=== PATIENT | male | born 1945 | race Caucasian/White ===

== ENCOUNTER 2023-10-01 06:26 | Day surgery (SDC) | payer OTHER ==
[2023-09-27 16:27] LABS: Absolute Basophils 0.1 K/uL (0-0.5); Absolute Eosinophils 0.3 K/uL (0-0.5); Absolute Lymphocytes (CBC) 1.9 K/uL (0.7-4.9); Absolute Monocytes 0.8 K/uL (0.1-1.3); Absolute Neutrophil 3.1 K/uL (1.8-8.0); Basophils % 0.9 % (0-1.3); Eosinophils % 4.9 % (0-4.4); Hematocrit 38.1 % (39.6-49.0); Hemoglobin 13.1 g/dL (13.6-17.9); Lymphocytes % 30.4 % (15.3-44.8); MCH 34.7 pg (27.0-35.0); MCHC 34.3 g/dL (32.0-36.0); MCV 101.2 fL (80-100); MPV 7.9 fL (7.6-11.3); Neutrophils % 50.8 % (41.7-73.7); Nucleated Red Blood Cells % 0.2 % (0-0); Platelets 207 thou/uL (152-406); RBC Red Blood Cell Count 3.76 M/uL (4.33-5.43); Red Cell Distribution Width 13.1 % (12.1-15.2)
[2023-09-27 16:42] LABS: Anion Gap 5.6 mEq/L (5.0-15.0); Potassium 3.6 mEq/L (3.5-5.1)
--- NOTE | 2023-09-28 00:47 | RAD REPORT ---
EXAM DESCRIPTION: RAD - Chest Pa And Lat (2 Views) - 09/27/2023 3:44 pm CLINICAL HISTORY: pre op. Hypertension COMPARISON: Chest Pa And Lat (2 Views) dated 11/13/2022; CHEST PA AND LAT 2 VIEW dated 12/20/2013; CHES T PA AND LAT 2 VIEW dated 03/19/2009 TECHNIQUE: PA and lateral views of the chest were obtained. FINDINGS: The lungs are clear apart from stable streaky right mid to lower lung opacities, may refle ct scarring. Elevation of the right hemidiaphragm again seen. Heart size is normal and central vascul ature is within normal limits. No pleural effusion or pneumothorax seen. No acute bony finding noted. IMPRESSION: No acute cardiopulmonary process. Stable findings as above.
--- NOTE | 2023-09-28 14:16 | EKG ---
Test Date: 2023-09-27 Test Time: 15:26:27 Public Relations Intern: PREO MEASUREMENT RESULTS: Intervals: Rate: 68 NV: 166 QRSD: 90 QT: 432 QTc: 459 Hardin: P: 54 NV: 166 QRS: -19 T: 31 INTERPRETIVE STATEMENTS: Normal sinus rhythm Normal ECG Compared to ECG 03/19/2009 14:57:20 No significant changes Electronically Signed On 09-28-23 14:12:36 CDT by Marin Hein
[2023-10-01] MEDS: Ringers Lactate 1,000 ML IV ONE (06:53)
[2023-10-01] MEDS ORDERED: propofoL 200 MG/20 ML VIAL IV ONE (07:10)
[2023-10-01] MEDS ORDERED: ONDANSETRON 4 MG/2 ML VIAL ONE (07:10)
[2023-10-01] MEDS ORDERED: LIDOCAINE 2% MPF 5 ML VIAL ONE (07:10)
[2023-10-01] MEDS ORDERED: FENTANYL CITR 100 MCG/2 ML ONE (07:13)
[2023-10-01] MEDS: CEFAZOLIN SODIUM 2 GM/VIAL ONE (07:37)
[2023-10-01] MEDS: BUPIVACAINE 0.5% PF 10 ML VIAL ONE ×2 (08:00→08:05)
[2023-10-01] MEDS ORDERED: EPHEDRINE SULF 50 MG/ML VIAL ONE (08:01)
--- NOTE | 2023-10-01 08:47 | P.OP ---
Date of Service: 10/01/23 Preop diagnosis: Right neck and scalp mass, rule out skin cancer Postop diagnosis: Same Procedure performed: Wide excision right neck mass 4 x 2 cm with layered closure and right scalp mass 6 x 3 cm with layered closure. Frozen section. Surgeon: Shahbaz Ritchie MD Paid Internship: Fannie AWAD Estimated blood loss: Minimal Specimen: Right neck mass and right scalp mass Findings: Skin cancer Anesthesia: General Complications: None Drains: None Fluids and blood products: Nonapplicable Disposition: Recovery room Operative note: Patient brought to the OR placed in supine position. General anesthesia begun. Patient prepped and draped in the usual sterile fashion. Marcaine 0.5% infiltrated locally for postop pain control. Then 15 blade used to make a 4 x 2 incision on the right superior neck. This incision surrounded approximately a 1 cm area of induration with central necrosis. Complete excision of the lesion was accomplished. The specimen was labeled appropriately and sent to pathology for frozen section which revealed basal cell carcinoma with margins free. Wound irrigated and bleeding controlled cautery. 3-0 chromic used to reapproximate subcutaneous tissue and 5-0 Prolene used to close skin. Sterile dressing applied. Then a 6 x 3 cm incision was made around a 2.5 cm raised ulcerated mass superior to the right ear. The borders were normal in appearance. Entire mass along with the skin was excised and sent to pathology after being appropriately labeled. Wound irrigated and bleeding controlled cautery. Flaps created. 2-0 chromic used to approximate subcutaneous tissue. 4-0 nylon used to close skin. Sterile dressing applied. Patient awakened and taken to recovery room in good general condition. The frozen section is pending on the second specimen. I will dictate an addendum should anything change. CC: Dr. John's office
[2023-10-01 12:22] VITALS: BP 128/73; TEMP 97; O2SAT 92
== END 2023-10-01 10:48 | disposition home or self-care (01) ==
LOC: OR 06:26
PROVIDERS: ATTEND Surgery
PROC: 0HB0XZZ Excision of Scalp Skin, External Approach (ICD-10-PCS; 2023-10-01)
PROC: 0HB4XZZ Excision of Neck Skin, External Approach (ICD-10-PCS; principal; 2023-10-01 07:30)
DX: C44.41 Basal cell carcinoma of skin of scalp and neck (principal)
CPT/HCPCS: 93005; 85025; 80048; 36415; 88331; 88332; 88305; 71046; 11624; 11626; J2704; J2001; J3010; J2405; J7120

== ENCOUNTER 2024-06-23 06:24 | Day surgery (SDC) | payer OTHER ==
[2024-06-21 08:19] LABS: Absolute Basophils 0.1 K/uL (0-0.5); Absolute Eosinophils 0.2 K/uL (0-0.5); Absolute Monocytes 0.7 K/uL (0.1-1.3); Absolute Neutrophil 2.1 K/uL (1.8-8.0); Basophils % 1.1 % (0-1.3); Eosinophils % 4.5 % (0-4.4); Lymphocytes % 38.6 % (15.3-44.8); MCH 33.9 pg (27.0-35.0); MCHC 33.3 g/dL (32.0-36.0); MCV 101.9 fL (80-100); MPV 6.6 fL (7.6-11.3); Monocytes % 13.7 % (3.3-12.3); Neutrophils % 42.1 % (41.7-73.7); Nucleated Red Blood Cells % 0.3 % (0-0); Platelets 240 thou/uL (152-406); RBC Red Blood Cell Count 4.13 M/uL (4.33-5.43)
--- NOTE | 2024-06-21 08:20 | RAD REPORT ---
EXAMINATION: TWO VIEW CHEST XR CLINICAL INDICATION: Pre-op pending hernia repair TECHNIQUE: 2 views of the chest was performed. COMPARISON: 09/27/2023 FINDINGS: The lungs are hyperexpanded suggesting COPD. Chronic thickening costophrenic sulci. The heart is uppe r limit of normal in size. No displaced fractures evident. IMPRESSION: COPD is suspected without acute finding identified.
[2024-06-21 08:34] LABS: Anion Gap 7.2 mEq/L (5.0-15.0); Potassium 4.2 mEq/L (3.5-5.1)
[2024-06-23] MEDS: Ringers Lactate 1,000 ML IV ONE (06:50)
[2024-06-23] MEDS ORDERED: propofoL 200 MG/20 ML VIAL IV ONE (06:51)
[2024-06-23] MEDS ORDERED: ROCURONIUM 50 MG/5 ML VIAL IV ONE (06:51)
[2024-06-23] MEDS ORDERED: GLYCOPYRROLATE 0.2 MG/ML SYR ONE (06:51)
[2024-06-23] MEDS ORDERED: ONDANSETRON 4 MG/2 ML VIAL ONE (06:51)
[2024-06-23] MEDS ORDERED: NEOSTIGMINE 1 MG/ML -10 ML VIAL ONE (06:51)
[2024-06-23] MEDS ORDERED: LIDOCAINE 2% MPF 5 ML VIAL ONE (06:51)
[2024-06-23] MEDS ORDERED: FENTANYL CITR 100 MCG/2 ML ONE (06:52)
[2024-06-23] MEDS ORDERED: MIDAZOLAM HCL 2 MG/2 ML INJ ONE (06:52)
[2024-06-23] MEDS: CEFAZOLIN SODIUM 2 GM/VIAL ONE (07:30)
[2024-06-23] MEDS ORDERED: SUGAMMADEX SODIUM 200 MG/2 ML VIAL IV ONE (07:42)
[2024-06-23] MEDS ORDERED: EPHEDRINE SULF 50 MG/ML VIAL ONE (07:53)
--- NOTE | 2024-06-23 08:36 | P.OP ---
Date of Service: 06/23/24 Preop diagnosis: Umbilical hernia Postop diagnosis: Same Procedure performed: Laparoscopic assisted repair of umbilical hernia Surgeon: Shahbaz Ritchie MD Dielectric Tester: None Estimated blood loss: Minimal Specimen: Hernia sac Findings: As above Anesthesia: General Complications: None Drains: None Fluids and blood products: Nonapplicable Disposition: Recovery room Operative note: Patient brought to the OR and placed in supine position. General anesthesia began. Patient prepped and draped in usual sterile fashion. Marcaine 0.5% infiltrated locally. 15 blade used to make a 1 cm left upper quadrant incision. Subcutaneous tissue divided. Bleeding controlled cautery. Fascia identified and divided. #1 Vicryl stay suture placed. Peritoneal cavity entered with sharp and blunt dissection. 12 mm trocar placed into the peritoneal cavity under direct vision. Pneumoperitoneum established. A 5 mm trocar placed in the left lower quadrant under direct vision. Laparoscopy revealed a infraumbilical hernia with preperitoneal fat. The defect was approximately 2 cm in diameter. A 4 cm infraumbilical transverse incision was made. Subcutaneous tissue divided. Hernia sac and contents identified. Both excised and sent to pathology as specimen. Good fascial edges obtained. A large Ventralex hernia mesh placed. #1 PDS used to close the fascial defect as well as attach the mesh to the hernia. Laparoscopy reestablished. The mesh had complete coverage of the hernia defect with 3 cm borders on all sides. Sorber tack used to secure the mesh to the peritoneal surface. There was no evidence of bleeding or bowel injury appreciated. All trocars removed under direct vision. Stay sutures tied to each other to reapproximate the fascial defect. Subcutaneous wounds irrigated and bleeding controlled cautery. 3-0 chromic used to approximate subcutaneous tissue and close skin. Sterile dressing applied. Patient awakened and taken to recovery room in good general condition. CC: Dr. John's office
[2024-06-23] MEDS: HYDROMORPHONE HCL 1 MG/ML INJ ONE (08:56)
[2024-06-23] MEDS: HYDROCODONE/APAP 7.5/325 MG TAB ONE (09:35)
[2024-06-23] MEDS ORDERED: Mastisol Adhesive Liq ONE (09:59)
[2024-06-23 10:19] VITALS: TEMP 97
[2024-06-23 12:28] VITALS: BP 103/68; O2SAT 94
== END 2024-06-23 11:11 | disposition home or self-care (01) ==
LOC: OR 06:24
PROVIDERS: ATTEND Surgery
PROC: 0WUF4JZ Supplement Abdominal Wall with Synthetic Substitute, Percutaneous Endoscopic Approach (ICD-10-PCS; principal; 2024-06-23 07:30)
DX: K42.9 Umbilical hernia without obstruction or gangrene (principal)
CPT/HCPCS: 85025; 80048; 36415; 88302; 71046; 49591; J2704; J2003; J2250; J3010; J1171; J2405; J7120; A4314; J2710

== ENCOUNTER 2025-02-05 07:13 | Day surgery (SDC) | payer OTHER ==
[2025-02-02 09:52] LABS: Absolute Lymphocytes (CBC) 1.8 K/uL (0.7-4.9); Hematocrit 40.2 % (39.6-49.0); Hemoglobin 13.4 g/dL (13.6-17.9); MCH 34.0 pg (27.0-35.0); MCHC 33.3 g/dL (32.0-36.0); MCV 101.9 fL (80-100); MPV 7.1 fL (7.6-11.3); Nucleated RBC Absolute Count 0.0 (0-0); Nucleated Red Blood Cells % 0.1 % (0-0); RBC Red Blood Cell Count 3.94 M/uL (4.33-5.43); White Blood Count 5.10 thou/uL (4.3-10.9)
[2025-02-02 10:10] LABS: Anion Gap 8.0 mEq/L (5.0-15.0); BUN Blood Urea Nitrogen 25.0 mg/dL (7-18); Glucose Level 95.0 mg/dL (74-106); Potassium 4.0 mEq/L (3.5-5.1)
[2025-02-05] MEDS: Ringers Lactate 1,000 ML IV ONE (07:45)
[2025-02-05] MEDS ORDERED: ONDANSETRON 4 MG/2 ML VIAL ONE (08:00)
[2025-02-05] MEDS ORDERED: FENTANYL CITR 100 MCG/2 ML ONE (08:00)
[2025-02-05] MEDS ORDERED: LIDOCAINE 2% MPF 5 ML VIAL ONE (08:00)
[2025-02-05] MEDS ORDERED: EPHEDRINE SULF 50 MG/ML VIAL ONE (08:33)
[2025-02-05] MEDS: CEFAZOLIN SODIUM 2 GM/VIAL ONE (08:35)
[2025-02-05] MEDS: BUPIVACAINE 0.5% PF 10 ML VIAL ONE (09:00)
[2025-02-05] MEDS ORDERED: Phenylephrine HCl 10 MG/ML 1 ML VIAL ONE (09:03)
[2025-02-05] MEDS ORDERED: NS 0.9% VIAL 10 ML ONE (09:03)
--- NOTE | 2025-02-05 09:59 | P.OP ---
Date of Service: 02/05/25 Preop diagnosis: Left confucianism ulcerated mass Postop diagnosis: Same, basal cell carcinoma Procedure performed: Wide excision left confucianism region basal cell carcinoma 4 x 1 cm with layered closure Surgeon: hSahbaz Ritchie MD Vocational Auto Body Instructor: None Estimated blood loss: Minimal Specimen: Left confucianism ulcerated mass Findings: Basal cell carcinoma, the initial frozen section revealed margins to be very close to the 12 and 6 o'clock position. Therefore, more tissue was excised at those locations and sent to pathology. Anesthesia: General Complications: None Drains: None Fluids and blood products: None Disposition: Recovery room Operative note: Patient brought to the OR and placed in supine position. General anesthesia began. Patient prepped and draped in usual sterile fashion. A 15 blade used to make approximately a 3 x 1 cm incision encompassing this ulcerated mass that was present on the left temporal region lateral to the left eye. The entire mass was excised and sent to pathology for frozen section. Frozen section revealed the lateral margins to be free of basal cell carcinoma however the 12:00 and 6 o'clock position showed cancer cells abutting the margin. Therefore, approximately 5 mm more was excised on both margins. Wound irrigated bleeding controlled with cautery. 4-0 chromic used to reapproximate subcutaneous tissue and close skin. Sterile dressing applied. Patient awakened and taken to recovery room in good general condition. CC: Dr. John's
[2025-02-05] MEDS ORDERED: HYDROCODONE/APAP 7.5/325 MG TAB ONE (10:46)
[2025-02-05] MEDS: HYDROCODONE/APAP 7.5/325 MG TAB PO PRN (10:48)
[2025-02-05 11:11] VITALS: BP 121/69; TEMP 97; O2SAT 97
== END 2025-02-05 11:40 | disposition home or self-care (01) ==
LOC: OR 07:13
PROVIDERS: ATTEND Surgery
PROC: 0HB1XZZ Excision of Face Skin, External Approach (ICD-10-PCS; principal; 2025-02-05 08:30)
DX: C44.319 Basal cell carcinoma of skin of other parts of face (principal)
CPT/HCPCS: 85025; 80048; 36415; 88331; 88332; 88305; 11646; A4216; J2704; J1100; J2371; J2003; J3010; J2405; J7120